=== PATIENT | female | born 1960 | race Hispanic/Latino ===

== ENCOUNTER 2018-05-12 09:55 | Day surgery (SDC) | payer BC ==
[2018-05-12] MEDS ORDERED: DILAUDID IV PRN ×2 (10:58→13:11)
[2018-05-12] MEDS ORDERED: ZOFRAN IV PRN ×2 (10:58→14:11)
[2018-05-12] MEDS ORDERED: VERSED IV NR (11:00)
[2018-05-12] MEDS ORDERED: LACTATED RINGERS 1,000 ML IV SCH ×2 (11:00)
[2018-05-12] MEDS ORDERED: SUBLIMAZE ONE (11:35)
[2018-05-12] MEDS ORDERED: XYLOCAINE MPF 2% ONE (11:35)
[2018-05-12] MEDS ORDERED: DIPRIVAN 10 MG/ML IV ONE (11:35)
[2018-05-12 11:49] LABS: Hematocrit 38.1 % (30.3-42.9); Hemoglobin 13.3 gm/dl (10.1-14.3)
[2018-05-12] MEDS ORDERED: WATER FOR IRRIG STERILE IR ONE (12:20)
[2018-05-12] MEDS ORDERED: ANCEF/STERILE WATER 2 GM/20 ML IV NR (13:00)
--- NOTE | 2018-05-12 13:10 | Anesthesia Consultation ---
Anesthesia Consult and Med Hx Date of service: 05/12/18 - Airway Anesthetic Teeth Evaluation: Good ROM Head & Neck: Adequate Mental/Hyoid Distance: Adequate Mallampati Class: Class I Intubation Access Assessment: Good - Pulmonary Exam CTA: Yes - Cardiac Exam Cardiac Exam: RRR - Pre-Operative Health Status ASA Pre-Surgery Classification: ASA2 Proposed Anesthetic Plan: General - Pulmonary Hx Smoking: Yes (STOPPED X 40 YRS) Hx Sleep Apnea: No (JIM PRE SCREEN LOW RISK.) - Cardiovascular System Hx Hypertension: No - Hematic Hx Anemia: Yes - Other Systems Hx Cancer: No
--- NOTE | 2018-05-12 13:10 | Anesthesia Day of Surgery ---
Anesthesia Day of Surgery - Day of Surgery Patient Examined: Yes Patient H&P Reviewed: Yes Patient is NPO: Yes
--- NOTE | 2018-05-12 13:24 | Short Stay Summary ---
Short Stay Documentation Date of service: 05/12/18 - History H&P: obtained from office - Allergies and Medications Current Medications: Allergies No Known Allergies Allergy (Verified 05/09/18 16:39) Home Medications Medication Instructions Recorded Confirmed Last Taken Type Aspirin [Lo-Dose Aspirin EC] 81 mg PO DAILY 05/09/18 05/09/18 05/08/18 History Ferrous Sulfate 324 mg PO DAILY 05/09/18 05/09/18 Unknown History Magnesium 200 mg PO DAILY 05/09/18 05/09/18 Unknown History Multivit-Min/FA/Lycopen/Lutein 1 each PO DAILY 05/09/18 05/09/18 Unknown History [Centrum Silver Tablet] [place]-3/Dha/Epa/Fish Oil [Fish Oil 1 each PO DAILY 05/09/18 05/09/18 Unknown History 1,000 mg Softgel] Active Medications Cefazolin Sodium (Ancef/Sterile Water 2 Gm/20 Ml) 2 gm IV PREOP NR Stop: 05/12/18 23:59 Hydromorphone HCl (Dilaudid) 0.5 mg IV Q10MIN PRN PRN Reason: Pain , Severe (7-10) Stop: 05/12/18 14:00 Hydromorphone HCl (Dilaudid) 0.5 mg IV Q10MIN PRN PRN Reason: Pain , Severe (7-10) Stop: 05/13/18 06:00 Lactated Ringer's (Lactated Ringers) 1,000 mls @ 100 mls/hr IV DIRECT KEMAR Last Admin: 05/12/18 11:41 Dose: 100 mls/hr Midazolam HCl (Versed) 2 mg IV PREOP NR Stop: 05/12/18 23:59 Last Admin: 05/12/18 12:14 Dose: 2 mg Ondansetron HCl (Zofran) 4 mg IV ONCE PRN PRN Reason: Nausea And Vomiting Stop: 05/13/18 14:10 - Brief post op/procedure progress note Date of procedure: 05/12/18 Pre-op diagnosis: rt renal stone, abnormal cytology Post-op diagnosis: same Procedure: cysto, bx bladder lesion RT ESWL Anesthesia: GETA Surgeon: GINO RAO Estimated blood loss: none Pathology: list (bladder bx) Condition: stable - Hospital course Hospital course: norco, cipro, post op info on chart(& CT report) - Disposition Condition at discharge: Stable Disposition: DC-01 TO HOME OR SELFCARE Short Stay Discharge Plan Follow up with: NEHEMIAS MARTINEZ MD [Primary Care Provider] - 7 Days
--- NOTE | 2018-05-12 13:48 | Operative Report ---
PREOPERATIVE DIAGNOSIS: Right renal calculi, abnormal cytology, gross hematuria. POSTOPERATIVE DIAGNOSES: Right renal calculi, abnormal cytology, gross hematuria. PROCEDURE: Cystoscopy, biopsy of small bladder lesion and fulguration, right extracorporal shock wave lithotripsy. SURGEON: Maxime Ulloa MD ANESTHESIA: General. ESTIMATED BLOOD LOSS: Minimal. FLUIDS: Crystalloid. COMPLICATIONS: No complications. INDICATIONS: This patient is a 57-year-old female seen by Dr. Walton in the office for hematuria and flank pain. CT of abdomen and pelvis revealed a cluster of small stones in the right upper kidney 3-4 mm and then in the lower right kidney 4-5 mm. No bladder abnormalities; however, some fullness in the uterine area. She also had an abnormal cytology and presents for treatment of this. Risks, benefits, and complications were explained. The patient agreed to proceed with surgical intervention. DESCRIPTION OF PROCEDURE: The patient was taken to the operative suite, placed in a supine position. After adequate general anesthesia, placed in a dorsal lithotomy position, prepped and draped in a sterile fashion. Pancystourethroscopy was performed with 22-[place] Storz cystoscope for evaluation of the bladder and the small area of erythema in the posterior right side. This area was biopsied and sent for routine pathologic evaluation and fulgurated without difficulty. Her bladder was drained. She was then placed in a supine position where a stone in the lower pole could be appreciated. No other stones could be seen, it appeared that maybe the cluster is now all in one area. Extracorporal shock wave lithotripsy was administered with maximum kV of 4 and 2000 shocks. The patient tolerated the procedure well. She was extubated and taken to recovery room. She will go home on [place]. The patient also wanted a copy of her CT report. JOB# [id number] [facility]
[2018-05-12 14:12] VITALS: BP 128/77
--- NOTE | 2018-05-12 14:38 | Post Anesthesia Evaluation ---
- Post Anesthesia Evaluation Patient Participated: Yes Airway Patent: Yes Stable Respiratory Function: Yes Nausea/Vomiting: No Temp > 96.8F: Yes Pain Manageable: Yes Adequeate Hydration: Yes Anesthesia Complications: No
== END 2018-05-12 14:50 | disposition home or self-care (01) ==
LOC: OR 09:55
PROVIDERS: ATTEND Urology
DX: N20.0 Calculus of kidney (principal); N30.20 Other chronic cystitis without hematuria; N32.89 Other specified disorders of bladder; I10 Essential (primary) hypertension; K58.9 Irritable bowel syndrome, unspecified; G43.909 Migraine, unspecified, not intractable, without status migrainosus; Z79.82 Long term (current) use of aspirin; Z98.51 Tubal ligation status; Z87.891 Personal history of nicotine dependence; Z80.51 Family history of malignant neoplasm of kidney; Z80.49 Family history of malignant neoplasm of other genital organs
CPT/HCPCS: 36415; 50590; 52204; 85014; 85018; 88305; A4217; C1758; J2250; J2704; J3010; J7120